=== PATIENT | male | born 1955 | race Caucasian/White ===

== ENCOUNTER 2017-01-20 11:08 | Outpatient (CLI) ==
--- NOTE | 2017-01-20 11:50 | DI ---
EXAM: Cervical spine radiographs. HISTORY: Neck pain. COMPARISON: None available. TECHNIQUE: Frontal, lateral, swimmers and odontoid views. FINDINGS: The normal curvature and alignment are maintained. Vertebral body and intervertebral disc heights are normal. No fracture or subluxation is seen. Mild endplate osteophyte formation and fac et arthropathy noted at multiple levels. Prevertebral soft tissues are unremarkable. IMPRESSION: Mild degenerative changes.
--- NOTE | 2017-01-20 11:51 | DI ---
EXAM: Lumbar spine radiographs. HISTORY: Back pain. COMPARISON: Abdominal CT 01/13/2017. TECHNIQUE: Three views of the lumbar spine. FINDINGS: The normal curvature and alignment are maintained. Vertebral body and intervertebral disc heights are normal. No fracture or subluxation identified. Mild multilevel endplate osteophyte for mation and facet arthropathy noted. Sacral arcuate lines are intact. Soft tissues are unremarkable. Clips seen in the right abdomen. IMPRESSION: Mild multilevel degenerative changes.
--- NOTE | 2017-01-20 11:51 | DI ---
Exam: Three x-rays of the thoracic spine. Comparison: CT abdomen pelvis with contrast performed on 01/13/2017. Reason for exam: Pain. FINDINGS: No acute fracture or listhesis. The vertebral body and intervertebral body disc space hei ghts are relatively well maintained. There is a normal appearing thoracic kyphotic curve. The super iormost portion of the thoracic spine is not well seen secondary to summation shadowing. Mild to mode rate degenerative disease. Impression: No obvious fracture or listhesis in the imaged portions of the thoracic spine. The superiormost thor acic spine is not well seen secondary to summation artifact.
== END 2017-01-20 11:09 | disposition home or self-care (01) ==
LOC: RAD 11:08
PROVIDERS: ATTEND Physician Assistant Medical
DX: M54.2 Cervicalgia (principal); M54.6 Pain in thoracic spine; M54.5 Low back pain

== ENCOUNTER 2017-02-10 06:56 | Outpatient (CLI) ==
--- NOTE | 2017-02-10 10:42 | MRI ---
EXAM: MRI of the abdomen with and without contrast History: Renal lesions. Comparison: CT abdomen pelvis 01/13/2017 Technique: Multiplanar, multisequence MRI images through the abdomen were obtained with and without the administration of IV contrast. 20 mL of Omniscan was given. Findings: Lung bases are free of consolidation. Bone marrow signal is appropriate. The liver is enlarged measuring 20 cm in length. Spleen is unremarkable. Status post cholecystectom y. There is signal drop out within the liver. Common bile duct is not dilated. No intrahepatic janelle iary ductal dilatation. No peripancreatic inflammation. 4 cm duodenal diverticulum again noted. The left adrenal gland is unremarkable. 2.3 cm heterogeneou s right adrenal nodule with no definite signal drop out to suggest an adenoma. There is motion artifact through the kidneys which limits evaluation. 8 mm minimally enhancing lesion within the inferior pole of the right kidney. 1.6 cm complex cystic lesion within the left kidney de monstrating irregular ring enhancement and internal fat component. 1 cm simple cyst within the left k idney. No pathologically enlarged lymph nodes. No ascites. No dilated loops of bowel. No focal elinor er or splenic lesions. Portal vein is patent. Impression: 1. Pancreatic tail mass suspicious for malignancy. Further evaluation recommended. 2. Right adrenal nodule suspicious for malignancy. 3. 8 mm right renal mass is too small to characterize accurately but is also concerning for malignanc y. 4. Complex cystic lesion within the left kidney could be malignant or related to some type of post-t reatment change. 5. Enlarged fatty liver.
== END 2017-02-10 06:57 | disposition home or self-care (01) ==
LOC: RAD 06:56
PROVIDERS: ATTEND Physician Assistant Medical
DX: D41.01 Neoplasm of uncertain behavior of right kidney (principal)

== ENCOUNTER 2017-04-15 06:52 | Outpatient (CLI) ==
--- NOTE | 2017-04-15 08:56 | CT ---
EXAM: CT of the abdomen pelvis with and without contrast History: Pancreatic mass. Comparison: CT abdomen pelvis 01/13/2017 Technique: Multiplanar CT images through the abdomen pelvis were obtained with and without the admin istration of IV contrast Findings: Tree-in-bud opacities with micronodules seen in the left lower lobe are new compared to the prior study. No acute osseous abnormalities. No renal stones and no hydronephrosis. Status post cholecystectomy. The liver is fatty. No peripan creatic inflammation. Left adrenal gland is unremarkable. Stable well-circumscribed 2.2 cm right ad renal nodule. Decreasing size of fat containing exophytic lesion of the left kidney now measuring 1. 3 cm and previously measured 1.8 cm. No bowel obstruction. No free air and no ascites. No bladder wall thickening. Prostatic calcifications. No perirectal inflammation. No pathologically enlarged lymph nodes. Pancreatic tail mass is stable measuring 1.7 cm. Duodenal diverticulum again noted. N o enhancing renal masses. Impression: 1. Stable pancreatic tail mass. Recommend followup CT in 6 months to document stability. 2. Stable right adrenal nodule. Recommend follow-up CT in 6 months to document stability. 3. Decreasing size of benign fat containing lesion of the left kidney. No additional follow-up is n eeded. 4. Hepatic steatosis
== END 2017-04-15 06:53 | disposition home or self-care (01) ==
LOC: RAD 06:52
PROVIDERS: ATTEND Surgery
DX: K86.9 Disease of pancreas, unspecified (principal)
CPT/HCPCS: 36415; 82565

== ENCOUNTER 2018-01-05 09:00 | Outpatient (CLI) | payer OTHER ==
--- NOTE | 2018-01-05 10:52 | CT ---
EXAM: CT of the abdomen pelvis with contrast History: Mid and lower abdominal pain, history of pancreatic cancer. Comparison: CT abdomen pelvis 04/15/2017 Technique: Multiplanar CT images through the abdomen pelvis were obtained following administration o f IV and enteric contrast Findings: Subsegmental atelectasis seen within the lower lungs. No acute osseous abnormalities. Status post cholecystectomy. The liver is fatty. Interval resection of the pancreatic tail mass and interval splenectomy. The rest of the pancreas is without mass lesion. No significant interval soto e in the 2.3 cm well circumscribed right adrenal nodule. Left adrenal gland is unremarkable. Decreas ing size of fat containing lesion within the peripheral left kidney now measuring 0.6 cm and previous ly measured 1.3 cm. Stable 0.8 cm cyst within the left renal cortex. 1.3 cm mass within the anterior right renal cortex inferior pole has been slowly increasing in size compared to the prior studies an d previously measured 1.1 cm. Right ureteral stent is seen in place. No bladder wall thickening. P rostate is not enlarged. No bowel obstruction. No free air. No ascites. No pathologically enlarge d lymph nodes. Impression: 1. Interval resection of pancreatic tail mass and interval splenectomy. 2. Slight interval increase in size of mass within the inferior pole of the right kidney is indeterm inate. Recommend further evaluation with MRI renal mass protocol. 3. No significant interval change in the right adrenal nodule. This can also be evaluated with abdo kevin MRI. 4. Decreasing size of benign fat containing lesion within the left kidney. 5. Hepatic steatosis
== END 2018-01-05 09:01 | disposition home or self-care (01) ==
LOC: RAD 09:00
PROVIDERS: ATTEND Internal Medicine Hematology & Oncology
DX: C25.9 Malignant neoplasm of pancreas, unspecified (principal); C25.2 Malignant neoplasm of tail of pancreas
CPT/HCPCS: 36415; 82565

== ENCOUNTER 2018-01-13 11:38 | Outpatient (CLI) | END 2018-01-13 11:39 | disposition home or self-care (01) | LOC: LAB 11:38 | PROVIDERS: ATTEND Internal Medicine Hematology & Oncology | DX: R73.9 Hyperglycemia, unspecified (principal); N64.4 Mastodynia | CPT/HCPCS: 36415; 80053; 85025 ==

== ENCOUNTER 2018-01-27 07:44 | Outpatient (CLI) | payer OTHER ==
--- NOTE | 2018-01-27 13:16 | MRI ---
EXAM: MRI abdomen without and with contrast HISTORY: Renal mass TECHNIQUE: Multiplanar, multisequence without and following the administration of intravenous Dotare m, 17 mL using a dynamic contrast enhanced protocol COMPARISON: CT abdomen/pelvis from 01/05/2018 FINDINGS: The heart size is normal. No pericardial or pleural effusions are appreciated. There is diffuse loss of signal within the hepatic parenchyma on the [id number] images as compared to the in-phase images. No hepatic lesions are appreciated. The portal and hepatic veins are patent . The gallbladder capsule surgically absent. There is no biliary dilatation. The common bile duct is less than 3 mm in diameter. A splenectomy and distal pancreatectomy have been performed. The rem aining pancreas has normal signal and enhancement. A right adrenal nodule is 19.3 x 14.4 mm. This has loss of signal on the [id number] images as comp ared to the in-phase images. The left adrenal gland has normal signal and morphology. There is a simple cyst at the superior to interpolar region of the left kidney measuring 11.3 mm. An additional simple cyst arises at the lateral aspect of the interpolar to inferior polar region of th e left kidney measuring 6 mm. There is a cystic lesion at the inferior pole of the right kidney that is indeterminate measuring 10.5 mm. This is slightly hypointense on the precontrast T1W images and m ay have low-level enhancement. This has bright T2 signal. No other renal lesions are appreciated. Ureters are normal caliber in their visualized portions. The intestines have normal signal and caliber. The aorta has normal caliber and flow signal. No lym phadenopathy or ascites are appreciated. The bone marrow signal intensity is maintained. IMPRESSION: 1. Diffuse hepatic steatosis. 2. Benign right adrenal adenoma. 3. Complex cystic lesion at the inferior pole of the right kidney. 6-month follow-up recommended. 4. Simple acquired left renal cysts. 5. No lymphadenopathy or ascites. 6. Previous cholecystectomy without biliary dilatation. 7. Previous distal pancreatectomy and splenectomy.
== END 2018-01-27 07:45 | disposition home or self-care (01) ==
LOC: RAD 07:44
PROVIDERS: ATTEND Internal Medicine Hematology & Oncology
DX: N28.89 Other specified disorders of kidney and ureter (principal)

== ENCOUNTER 2018-06-01 08:00 | Outpatient (CLI) ==
--- NOTE | 2018-06-01 11:47 | CT ---
Exam: CT abdomen and pelvis with and without contrast, CT urogram. HISTORY: Renal mass urogram. Prior partial pancreatectomy and splenectomy. Procedures: 3 mm contiguous axial images were obtained through the abdomen and pelvis prior to the i ntravenous administration of contrast. axial images were obtained through the abdomen during the art erial phase of contrast administration. Images were then obtained through the abdomen and pelvis dur ing the portal venous phase and again following a 10-minute delay. Three-dimensional volume rendered images, multiplanar reformatted images and maximum intensity projection images were also created and reviewed. Comparison: MRI of the abdomen 02/04/[address] urogram 04/15/2017. Findings: Minimal peribronchovascular opacity is again noted in both lung bases, similar to the prio r CT. There is no intrahepatic mass or biliary ductal dilatation. Surgical clips are in the gallbla dder fossa. The spleen has been resected, the pancreatic tail is been resected. The pancreatic head and body appear stable. There is redemonstration of a right adrenal nodule measuring 23 HU on preco ntrast imaging, 27 Hounsfield units on early postcontrast images and 36 HU on delayed images, this me asures approximately 2.2 cm x 1.5 cm. The kidneys are symmetric in size without hydronephrosis. Oleksandr ng the anterior medial margin of the right kidney lower pole is a 10 mm hypodense nodule which appear s to enhance. This appears slightly enlarged compared to the 04/15/2017 CT. There is a 1 cm fluid s ignal nonenhancing probable cyst in the medial upper pole of the left kidney. There is no filling de fect identified in either renal collecting system or the partially opacified ureters. The unopacifie d stomach and small bowel appear grossly within normal limits. The appendix is not visualized. The colon does not appear dilated or inflamed. The urinary bladder is nondistended, without radiodense s tone or apparent filling defect. The prostate gland is enlarged. No free air, free fluid or lymphad enopathy is identified involving the abdomen or pelvis. Bone windows demonstrate mild degenerative findings in the hips and spine. No acute fracture is seen . Impressions: 10 mm nodule along the anterior medial lower pole of the right kidney appears to enhance and is most concerning for neoplasm. Stable right adrenal nodule. Postoperative changes of prior splenectomy and resection of the pancreatic tail. Prior cholecystecto my. Prostate hypertrophy.
== END 2018-06-01 08:01 | disposition home or self-care (01) ==
LOC: RAD 08:00
PROVIDERS: ATTEND Urology
DX: N28.89 Other specified disorders of kidney and ureter (principal)
CPT/HCPCS: 36415; 82565